=== PATIENT | female | born 1950 | race Caucasian/White ===

== ENCOUNTER → 2016-06-27 | Outpatient (CLI) | payer BC ==
[~2016-06-27] MED LIST: B-COTAB18 PO; FLAX10007 PO; HYDR25TA4 PO; MULTTAB58 PO; NAPR500T3 PO; OMEG12006 PO; OYST500T47 PO; Potassium PO; VITA400C3 PO
--- NOTE | 2016-07-01 14:28 | MAMMOGRAPHY REPORT ---
BILATERAL DIGITAL SCREENING MAMMOGRAM WITH CAD: 06/27/2016 CLINICAL HISTORY: Routine screening examination. TECHNIQUE: Bilateral CC and MLO views were obtained. Current study was also evaluated with a Comput er Aided Detection (CAD) system. COMPARISON: Comparison is made to exams dated: 06/01/2015 mammogram, 05/30/2014 mammogram, 05/27/2013 mammogram, 05/25/2012 mammogram, 05/23/2011 mammogram, and 05/11/2010 specimen - [facility]. BREAST COMPOSITION: The tissue of both breasts is almost entirely fatty. FINDINGS: There is expected architectural distortion in the 12:00 anterior right breast, at the site of prior benign surgical excisional biopsy. There is a stable intramammary lymph node in the upper outer posterior right breast. No new suspicious mass, architectural distortion or cluster of micro calcifications is seen. IMPRESSION: ACR BI-RADS CATEGORY 1: NEGATIVE There is no mammographic evidence of malignancy. A 1 year screening mammogram is recommended. The p atient will receive written notification of the results. Approximately 10% of breast cancers are not detected with mammography. A negative mammographic repor t should not delay biopsy if a clinically suggestive mass is present. Candace Smallwood M.D. ay/:07/01/2016 14:02:09 Retarder Operator: Chantelle MENDOZA)([place]), [facility] letter sent: Normal 1/2 BI-RADS Code: ACR BI-RADS Category 1: Negative
== END | disposition home or self-care (01) ==
LOC: C.MAMM 11:38
PROVIDERS: ATTEND Family Medicine
DX: Z12.31 Encounter for screening mammogram for malignant neoplasm of breast (principal)

== ENCOUNTER → 2017-08-08 | Outpatient (CLI) | payer BC ==
[~2017-08-08] MED LIST changes: +NAPR-1231 PO; -NAPR500T3 PO
--- NOTE | 2017-08-11 14:33 | MAMMOGRAPHY REPORT ---
BILATERAL DIGITAL SCREENING MAMMOGRAM TOMOSYNTHESIS WITH CAD: 08/08/2017 CLINICAL HISTORY: Routine screening. Patient has no complaints. TECHNIQUE: Breast tomosynthesis in addition to standard 2D mammography was performed. Current study was also evaluated with a Computer Aided Detection (CAD) system. COMPARISON: Comparison is made to exams dated: 06/27/2016 mammogram, 06/27/2016 mammogram, 06/01/2015 m ammogram, 05/30/2014 mammogram, 05/27/2013 mammogram, and 05/23/2011 mammogram - [facility] enter. BREAST COMPOSITION: The tissue of both breasts is almost entirely fatty. FINDINGS: No suspicious masses, calcifications, or areas of architectural distortion are noted in ei ther breast. There has been no significant interval change compared to prior exams. There is stable postsurgical architectural distortion in the right 12:00 anterior breast from prior excisional biopsy . A linear scar marker denotes a scar on the right anterior breast. IMPRESSION: ACR BI-RADS CATEGORY 2: BENIGN There is no mammographic evidence of malignancy. A 1 year screening mammogram is recommended. The pa tient will receive written notification of the results. Approximately 10% of breast cancers are not detected with mammography. A negative mammographic report should not delay biopsy if a clinically suggestive mass is present. Roselia Smith M.D. /:08/08/2017 14:46:41 Supervisor Paint: Radha [facility] letter sent: Normal 1/2 BI-RADS Code: ACR BI-RADS Category 2: Benign
== END | disposition home or self-care (01) ==
LOC: C.MAMM 12:06
PROVIDERS: ATTEND Family Medicine
DX: Z12.31 Encounter for screening mammogram for malignant neoplasm of breast (principal)

== ENCOUNTER 2025-04-02 13:49 | Inpatient (IN) ==
[2025-04-02 14:28] LABS: Hematocrit (blood only) 40.9 % (37.0-47.0); Hemoglobin 13.4 g/dL (12.0-16.0); Immature Granulocytes # (auto) 0.07 K/uL (0.01-0.20); Immature Granulocytes % (auto) 0.6 %; Mean Corpuscular Hemoglobin 30.1 pg (25.0-34.0); Mean Corpuscular Volume 91.9 fL (80.0-100.0); Platelet Count 220 K/uL (130-400); RDW Standard Deviation 47.7 fL (36.4-46.3); Red Blood Count 4.45 M/uL (4.20-5.40); White Blood Count 12.32 K/ul (4.8-10.8)
[2025-04-02 14:47] LABS: Alanine Aminotransferase 26 U/L (7-52); Albumin Globulin Ratio 1.1 (0.9-2); Albumin Level 3.9 gm/dl (3.4-5.0); Alkaline Phosphatase 55 U/L (34-104); Anion Gap 9 (3-11); Bilirubin,Total 0.6 mg/dl (0.2-1.0); Blood Urea Nitrogen 20 mg/dl (6-23); Calcium 9.6 mg/dl (8.6-10.3); Carbon Dioxide 27 mmol/L (21-32); Chloride 102 mmol/L (98-107); Globulin 3.7 gm/dl (2.5-4.0); Glucose 120 mg/dl (70-99(Fasting)); Potassium 3.7 mmol/L (3.5-5.1); Sodium 138 mmol/L (136-145); Total Protein 7.6 gm/dl (6.0-8.3)
--- NOTE | 2025-04-02 16:21 | XRay Report ---
EXAM: Radiograph of the Chest 1 View INDICATION: Cough TECHNIQUE: Frontal view of the chest. COMPARISON: No relevant prior studies available. FINDINGS: Lungs and pleural spaces: No consolidation or pulmonary edema. No pleural effusion or pneumothorax. Heart: Shape and configuration within normal limits allowing for technique. Mediastinum: Normal contour. Bones/joints: Degenerative changes noted throughout the spine. No acute osseous abnormality seen. Soft tissues: No abnormality noted. No radiopaque foreign body noted. Vasculature: Shallow inspiration with crowded vasculature. Upper abdomen: No abnormality noted. IMPRESSION: No acute cardiopulmonary disease. ACT 112: N/A Electronically signed by Phyllis Lopez 04-02-2025 4:20 PM
--- NOTE | 2025-04-02 16:40 | Emergency Department Note ---
Impression & Plan Influenza A, Upper respiratory infection, viral, Generalized weakness, Adult failure to thrive, Ambulatory dysfunction ED Provider Note NAME: KEMI LIZARRAGA AGE: 74 SEX: F : 1950 ARRIVES VIA: Walk-In INFORMANT: Patient, ED PROVIDER(S): Luís Lamb MD CHIEF COMPLAINT: Shortness of breath, cough HPI: This is a 74-year-old female presenting for shortness of breath and cough. Patient was diagnosed with the flu about 7 to 9 days ago. She has had persistent and worsening symptoms. She has had cough, difficulty talking due to this, shortness of breath. She is with her family states that she is not able to take care of herself at home and unable to do her daily activities. She reports weakness with ambulation. She reports no persistent fevers. She has been on steroids and inhaler without improvement. ROS: See above HPI for pertinent positives & negatives. A total of 10 systems reviewed and were otherwise negative. PAST MEDICAL HISTORY: See Below PAST SURGICAL HISTORY: See Below FAMILY HISTORY: See Below SOCIAL HISTORY: See Below HOME MEDICATIONS: See Below ALLERGIES: See Below VITALS: See Below PHYSICAL EXAMINATION: General: resting comfortably in no acute distress Head: Normocephalic and atraumatic Eyes: Normal inspection, extraocular muscles intact Ear, nose, throat: Normal external exam Neck: Normal range of motion Respiratory: Rhonchi diffusely Cardiovascular: Regular rate/rhythm, no murmur GI: soft, nontender, no guarding or rebound Extremities: nontender, moves all extremities Neuro: The patient awake and alert, appropriately conversive, no focal deficits, symmetric faces Skin: Warm, dry, and intact MEDICAL DECISION MAKING: This is a 74-year-old female sent for shortness of breath/cough. Patient sounds fairly junky, has borderline oxygen saturation of lower 90-91%. She is fluid positive over 1 week ago. Will do screening x-ray, blood work - Slight leukocytosis is noted, possibly from infection versus steroid use. No electrolyte abnormalities - Chest Xray independently interpreted by me showing no pneumothorax, focal opacity, or pleural effusions. - As patient is borderline hypoxic, having worsening symptoms and unable to take care of her son, admit to the hospital service at family's request. -Discussed care with Dr. Peña for admission Differential diagnosis: URI, pneumonia, failure to thrive, dehydration Independent History obtained from: Daughter, son-in-law Diagnostics interpreted by me: ECG: None Cardiac Monitoring: An order was placed for continuous cardiac monitoring. The monitor shows a rate of 68 with sinus rhythm. 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 Encounter for pre-operative examination Fatigue Encounter for vitamin deficiency screening Chronic back pain Multiple sclerosis Coronary artery disease [place] 2001, last stress test > 15 yrs ago, does not follow with cardio Hypertension Medical History Balance disorder Osteoarthritis Hx of cancer of uterus Myocardial Infarction Surgical History S/P epidural steroid injection History of esophagogastroduodenoscopy (EGD) History of colonoscopy Nausea and vomiting after administration of anesthetic agent History of bilateral tubal ligation History of tooth extraction History of hand surgery History of removal of cyst History of hysterectomy History of bladder surgery Family History Mother Allergies Hypertension Stroke Other No family history of adverse response to anesthesia No family history of bleeding disorder Denies family history of Ovarian cancer Prostate cancer Hearing loss Heart disease Myocardial infarction Breast cancer Colorectal cancer Cancer Asthma Social History Smoking Status: Never smoker Tobacco Type: Cigarettes Age Started Using Tobacco: 16; Age Quit Using Tobacco: 18; packs per day: 1; Second Hand Exposure: No; Do You Dip or Chew Tobacco: No; Hx Alcohol Use: No Hx Substance Use: No Preferred Language: Wolof Communication Ability: Effective Visual Impairment: Limited Hearing Ability: Normal Print Binding Worker Required: No Beliefs That Will Affect Care: None marital status: / Current Living Situation: Alone current occupational status: retired How many Children do You have: 2 Feels Safe at Home: Yes Childhood Exposure to Second-Hand Smoke: No Diet: regular caffeine: Yes during the past year weight has: remained stable Dental Care, Regularly: Yes Physical Activity Frequency: 3-4 Times per Week Seatbelt Use: always Sunscreen Use: No Do you think of yourself as: straight/heterosexual Sexual Activity: has been sexually active, but not for at least 12 months Gender Identity: Female Assistive Devices: Cane and Glasses Allergies Allergies Allergy/AdvReac Type Severity Reaction Status Date / Time erythromycin base Allergy Mild Rash Verified 04/02/25 17:25 Macrolide Antibiotics Allergy Mild Rash Verified 04/02/25 17:25 Penicillins Allergy Mild Rash Verified 04/02/25 17:25 Home Meds Home Medications Medication Instructions Recorded Confirmed ascorbic acid (vitamin C) 500 mg 500 mg PO QAM 02/07/21 04/02/25 tablet,extended release (Vitamin C ER) cholecalciferol (vitamin D3) 50 50 mcg PO QAM 02/07/21 04/02/25 mcg (2,000 unit) tablet (Vitamin D3) multivitamin 1 tab PO QAM 02/07/21 04/02/25 flaxseed oil 1,000 mg capsule 1,000 mg PO QPM 04/02/25 04/02/25 magnesium oxide 500 mg PO QPM 04/02/25 04/02/25 mupirocin 2 % topical ointment 1 applic topical DIRECTED 04/02/25 04/02/25 omega 3-dha 500 mg-epa 100 mg-fish 2 cap PO DAILY 04/02/25 04/02/25 oil 1,000 mg capsule Previous Rx's Medication Instructions Recorded amlodipine 5 mg tablet 5 mg PO QPM #90 tabs 01/19/25 lisinopril 20 mg tablet 20 mg PO QAM #90 tabs 01/19/25 metoprolol succinate 25 mg 25 mg PO HS #90 tabs 01/19/25 tablet,extended release 24 hr albuterol sulfate 90 mcg/actuation 2 puff inhalation QID PRN 03/30/25 aerosol inhaler shortness of breath or wheezing #6.7 grams prednisone 20 mg tablet See Rx Instructions PO .COMPLEX 03/30/25 #30 tabs benzonatate 100 mg capsule 100 mg PO TID PRN cough #30 caps 04/01/25 Results & Data (ED) Vital Signs Vital Signs - 24 hr 04/02/25 14:00 04/02/25 14:35 04/02/25 16:06 Temperature 36.9 C Temperature Source Temporal Artery Scan Pulse Rate 82 Pulse Rate [Apical] 80 68 Respiratory Rate 20 22 31 H Respiratory Effort / Characteristics Non-Labored Respiratory Depth Normal Blood Pressure 145/79 H Blood Pressure [Right Arm] 128/79 131/78 Blood Pressure Mean 101 Blood Pressure Mean [Right Arm] 95 95 Pulse Oximetry 93 93 91 Oxygen Delivery Method Room Air Room Air Room Air Sepsis Recent Fever Within 48 Hours No Sepsis New/Unexplained Change in Mental Status N/A Sepsis Action Taken by Nursing No Action Required 04/02/25 17:09 Temperature Temperature Source Pulse Rate 71 Pulse Rate [Apical] Respiratory Rate Respiratory Effort / Characteristics Respiratory Depth Blood Pressure Blood Pressure [Right Arm] Blood Pressure Mean Blood Pressure Mean [Right Arm] Pulse Oximetry Oxygen Delivery Method Sepsis Recent Fever Within 48 Hours Sepsis New/Unexplained Change in Mental Status Sepsis Action Taken by Nursing Laboratory Data 04/02/25 14:13 04/02/25 14:13 Lab Results 04/02/25 Range/Units 14:13 WBC 12.32 H (4.8-10.8) K/ul RBC 4.45 (4.20-5.40) M/uL Hgb 13.4 (12.0-16.0) g/dL Hct 40.9 (37.0-47.0) % MCV 91.9 (80.0-100.0) fL MCH 30.1 (25.0-34.0) pg MCHC 32.8 (32.0-36.0) g/dL RDW Std Deviation 47.7 H (36.4-46.3) fL RDW Coeff of Rhea 13.9 (11.5-14.5) % Plt Count 220 (130-400) K/uL MPV 9.2 L (9.4-12.4) fL Immature Gran % (Auto) 0.6 % Neut % (Auto) 68.9 % Lymph % (Auto) 24.5 % [place] % (Auto) 5.8 % Eos % (Auto) 0.0 % Baso % (Auto) 0.2 % Neut # (Auto) 8.49 H (1.40-6.50) K/uL Lymph # (Auto) 3.02 (1.20-3.40) K/uL [place] # (Auto) 0.72 H (0.11-0.59) K/uL Eos # (Auto) 0.00 (0.00-0.50) K/uL Baso # (Auto) 0.02 (0.00-0.20) K/uL Immature Gran # (Auto) 0.07 (0.01-0.20) K/uL Sodium 138 (136-145) mmol/L Potassium 3.7 (3.5-5.1) mmol/L Chloride 102 (98-107) mmol/L Carbon Dioxide 27 (21-32) mmol/L Anion Gap 9 (3-11) BUN 20 (6-23) mg/dl Creatinine 0.74 (0.6-1.2) mg/dl Est Cr Clr Drug Dosing Not Reportable eGFR 83.80 BUN/Creatinine Ratio 27.0 H (10-20) Glucose 120 H (70-99(Fasting)) mg/dl Calcium 9.6 (8.6-10.3) mg/dl Total Bilirubin 0.6 (0.2-1.0) mg/dl AST 20 (13-39) U/L ALT 26 (7-52) U/L Alkaline Phosphatase 55 (34-104) U/L Total Protein 7.6 (6.0-8.3) gm/dl Albumin 3.9 (3.4-5.0) gm/dl Globulin 3.7 (2.5-4.0) gm/dl Albumin/Globulin Ratio 1.1 (0.9-2) Administered Medications Discontinued Medications Sodium Chloride (Nss) 1,000 mls @ 999 mls/hr IV .Q1H1M ONE Stop: 04/02/25 16:56 Last Admin: 04/02/25 16:55 Dose: 999 mls/hr Documented By: SUDHA Imaging Data Radiologist's Impression: Chest X-Ray 04/02/25 14:05 EXAM: Radiograph of the Chest 1 View INDICATION: Cough TECHNIQUE: Frontal view of the chest. COMPARISON: No relevant prior studies available. FINDINGS: Lungs and pleural spaces: No consolidation or pulmonary edema. No pleural effusion or pneumothorax. Heart: Shape and configuration within normal limits allowing for technique. Mediastinum: Normal contour. Bones/joints: Degenerative changes noted throughout the spine. No acute osseous abnormality seen. Soft tissues: No abnormality noted. No radiopaque foreign body noted. Vasculature: Shallow inspiration with crowded vasculature. Upper abdomen: No abnormality noted. IMPRESSION: No acute cardiopulmonary disease. ACT 112: N/A Electronically signed by Phyllis Lopez 04-02-2025 4:20 PM Discharge Plan Visit Data Chief Complaint: Flu Like Symptoms Stated Complaint: +FLU, CONSTANT COUGH, DEBILITATION ED Provider: Luís Lamb Discharge Problem: Influenza A, Upper respiratory infection, viral, Generalized weakness, Adult failure to thrive, Ambulatory dysfunction Patient Disposition: Admitted As Inpatient Condition: Fair Forms Stand Alone Forms: My [facility] Prescriptions Prescriptions: No Action amlodipine 5 mg tablet 5 mg PO QPM Qty: 90 3RF lisinopril 20 mg tablet 20 mg PO QAM Qty: 90 3RF metoprolol succinate 25 mg tablet extended release 24 hr 25 mg PO HS Qty: 90 3RF benzonatate 100 mg capsule 100 mg PO TID PRN (Reason: cough) Qty: 30 0RF prednisone 20 mg tablet See Rx Instructions PO .COMPLEX Qty: 30 0RF Rx Instructions: STARTED 03/30/24 FOR 15 DAYS.....3 tabs PO daily X 5 days, then 2 tabs PO daily X 5 days, then 1 tab PO daily X 5 days, then stop. albuterol sulfate 90 mcg/actuation HFA aerosol inhaler 2 puff inhalation QID PRN (Reason: shortness of breath or wheezing) Qty: 6.7 0RF multivitamin Tablet 1 tab PO QAM ascorbic acid (vitamin C) [Vitamin C] 500 mg Tablet Extended Release 500 mg PO QAM cholecalciferol (vitamin D3) [Vitamin D3] 50 mcg (2,000 unit) Tablet 50 mcg PO QAM flaxseed oil 1,000 mg Capsule 1,000 mg PO QPM Rx Instructions: administer with a meal magnesium oxide 500 mg magnesium Tablet 500 mg PO QPM omega 0-ftm-tij-fish oil 500-100-1,000 mg Capsule 2 cap PO DAILY mupirocin 2 % ointment 1 applic topical DIRECTED Rx Instructions: APPLY TO AFFECTED NOSTRIL every few days Referrals Referrals: Brie Rivera CRNP [Primary Care Provider] -
[2025-04-02] MEDS: SODIUM CHLORIDE 0.9% 1,000 ML IV ONE (16:55)
--- NOTE | 2025-04-02 17:30 | History & Physical Report ---
Date of Service April 02, 2025 Assessment & Plan (1) Ambulatory dysfunction: (2) Influenza A: (3) Acute bronchitis: (4) Hypertension: Plan 74-year-old female with a past medical history of hypertension, history of multiple sclerosisnot on any treatment presents to the hospital with recent diagnosis of influenza, worsening cough, and dyspnea and generalized malaise: #Influenza #Left lower lobe pneumonia -Admit to [facility] -Patient underwent CT imaging, final report pendingpossible left lower lobe infiltrate -Due to leukocytosis, worsening symptoms will treat for bacterial pneumonia with IV antibiotics in the form of ceftriaxone and doxycycline. -based on current status not with evidence of sepsis - patient would not be a candidate for treatment of her influenza as it has been more than 5 days since she was diagnosed with this. -Continue prednisone, DuoNeb as needed -Encourage I-S -Antitussives as needed, Mucinex twice daily #Hypertension -Continue home medications including Norvasc, lisinopril and metoprolol #Debility -PT, OT eval History of Present Illness Chief Complaint: Cough Primary Care Provider: EDEN Grace 74-year-old female with a past medical history as mentioned below presents to the hospital from home. She was recently diagnosed with influenza, outpatient and has had increased cough along with some mild dyspnea and inability to talk for lengthy periods of time. She mentions her cough is minimally productive. She also complains of significant muscle aches, debility and generalized malaise. She had a fever earlier in her illness but has not had a fever for the past few days. She reached out to her primary care physician and they prescribed her prednisone along with inhalers, no improvement since starting these medications. She also was prescribed Tessalon Perles but has not been taking them in the you have the side effects. She mentions due to her signific ant cough she has not been able to sleep well. She denies having any chest discomfort. She has a mild sore throat and a change in her voice. She normally does not use any assist devices and has been feeling more unsteady than usual. Allergies Allergy/AdvReac Type Severity Reaction Status Date / Time erythromycin base Allergy Mild Rash Verified 04/02/25 17:25 Macrolide Antibiotics Allergy Mild Rash Verified 04/02/25 17:25 Penicillins Allergy Mild Rash Verified 04/02/25 17:25 Home Medications Medication Instructions Recorded Confirmed Type ascorbic acid (vitamin C) 500 mg 500 mg PO QAM 02/07/21 04/02/25 History tablet,extended release (Vitamin C ER) cholecalciferol (vitamin D3) 50 50 mcg PO QAM 02/07/21 04/02/25 History mcg (2,000 unit) tablet (Vitamin D3) multivitamin 1 tab PO QAM 02/07/21 04/02/25 History amlodipine 5 mg tablet 5 mg PO QPM #90 tabs 01/19/25 04/02/25 Rx lisinopril 20 mg tablet 20 mg PO QAM #90 tabs 01/19/25 04/02/25 Rx metoprolol succinate 25 mg 25 mg PO HS #90 tabs 01/19/25 04/02/25 Rx tablet,extended release 24 hr albuterol sulfate 90 mcg/actuation 2 puff inhalation QID PRN 03/30/25 04/02/25 Rx aerosol inhaler shortness of breath or wheezing #6.7 grams prednisone 20 mg tablet See Rx Instructions PO .COMPLEX 03/30/25 04/02/25 Rx #30 tabs benzonatate 100 mg capsule 100 mg PO TID PRN cough #30 caps 04/01/25 04/02/25 Rx flaxseed oil 1,000 mg capsule 1,000 mg PO QPM 04/02/25 04/02/25 History magnesium oxide 500 mg PO QPM 04/02/25 04/02/25 History mupirocin 2 % topical ointment 1 applic topical DIRECTED 04/02/25 04/02/25 History omega 3-dha 500 mg-epa 100 mg-fish 2 cap PO DAILY 04/02/25 04/02/25 History oil 1,000 mg capsule 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 Encounter for pre-operative examination Fatigue Encounter for vitamin deficiency screening Chronic back pain Multiple sclerosis Coronary artery disease [place] 2001, last stress test > 15 yrs ago, does not follow with cardio Hypertension Medical History Balance disorder Osteoarthritis Hx of cancer of uterus Myocardial Infarction Surgical History S/P epidural steroid injection History of esophagogastroduodenoscopy (EGD) History of colonoscopy Nausea and vomiting after administration of anesthetic agent History of bilateral tubal ligation History of tooth extraction History of hand surgery History of removal of cyst History of hysterectomy History of bladder surgery Family History Mother Allergies Hypertension Stroke Other No family history of adverse response to anesthesia No family history of bleeding disorder Denies family history of Ovarian cancer Prostate cancer Hearing loss Heart disease Myocardial infarction Breast cancer Colorectal cancer Cancer Asthma Social History Smoking Status: Never smoker Tobacco Type: Cigarettes Age Started Using Tobacco: 16; Age Quit Using Tobacco: 18; packs per day: 1; Second Hand Exposure: No; Do You Dip or Chew Tobacco: No; Hx Alcohol Use: No Hx Substance Use: No Preferred Language: Maori Communication Ability: Effective Visual Impairment: Limited Hearing Ability: Normal Security Support Analyst Required: No Beliefs That Will Affect Care: None marital status: / Current Living Situation: Alone current occupational status: retired How many Children do You have: 2 Feels Safe at Home: Yes Childhood Exposure to Second-Hand Smoke: No Diet: regular caffeine: Yes during the past year weight has: remained stable Dental Care, Regularly: Yes Physical Activity Frequency: 3-4 Times per Week Seatbelt Use: always Sunscreen Use: No Do you think of yourself as: straight/heterosexual Sexual Activity: has been sexually active, but not for at least 12 months Gender Identity: Female Assistive Devices: Cane and Glasses Physical Exam Physical Exam: Gen-pt in NAD, awake and alert CVS-+s1,s2, RRR, no murmurs Lungs- Diminished breath sounds at the bases. GI-+ bs, normoactive, NT, ND Ext-no edema, no cyanosis Neuro-grossly intact Results & Data Results & Data Vital Signs (Past 12 Hours) Vital Signs Temp Pulse Pulse Resp BP BP Pulse Ox 04/02/25 17:09 71 04/02/25 16:06 68 31 H 131/78 91 04/02/25 14:35 80 22 128/79 93 04/02/25 14:00 36.9 C 82 20 145/79 H 93 O2 Del Method 04/02/25 17:09 04/02/25 16:06 Room Air 04/02/25 14:35 Room Air 04/02/25 14:00 Room Air Laboratory Results 04/02/25 14:13 WBC 12.32 H RBC 4.45 Hgb 13.4 Hct 40.9 MCV 91.9 MCH 30.1 MCHC 32.8 RDW Std Deviation 47.7 H RDW Coeff of Rhea 13.9 Plt Count 220 MPV 9.2 L Immature Gran % (Auto) 0.6 Neut % (Auto) 68.9 Lymph % (Auto) 24.5 [place] % (Auto) 5.8 Eos % (Auto) 0.0 Baso % (Auto) 0.2 Neut # (Auto) 8.49 H Lymph # (Auto) 3.02 [place] # (Auto) 0.72 H Eos # (Auto) 0.00 Baso # (Auto) 0.02 Immature Gran # (Auto) 0.07 Sodium 138 Potassium 3.7 Chloride 102 Carbon Dioxide 27 Anion Gap 9 BUN 20 Creatinine 0.74 Est Cr Clr Drug Dosing Not Reportable eGFR 83.80 BUN/Creatinine Ratio 27.0 H Glucose 120 H Calcium 9.6 Total Bilirubin 0.6 AST 20 ALT 26 Alkaline Phosphatase 55 Total Protein 7.6 Albumin 3.9 Globulin 3.7 Albumin/Globulin Ratio 1.1 Diagnostic Findings Chest X-Ray 04/02/25 14:05 EXAM: Radiograph of the Chest 1 View INDICATION: Cough TECHNIQUE: Frontal view of the chest. COMPARISON: No relevant prior studies available. FINDINGS: Lungs and pleural spaces: No consolidation or pulmonary edema. No pleural effusion or pneumothorax. Heart: Shape and configuration within normal limits allowing for technique. Mediastinum: Normal contour. Bones/joints: Degenerative changes noted throughout the spine. No acute osseous abnormality seen. Soft tissues: No abnormality noted. No radiopaque foreign body noted. Vasculature: Shallow inspiration with crowded vasculature. Upper abdomen: No abnormality noted. IMPRESSION: No acute cardiopulmonary disease. ACT 112: N/A Electronically signed by Phyllis Lopez 04-02-2025 4:20 PM Code Status & VTE Plan VTE Prophylaxis Plan VTE Prophylaxis will be ordered: Yes PG Care Time/CCT Total # of Minutes Spent Total Time Spent with Patient: Total time spent is greater than 50% in coordination of care (as documented) at patient's floor/unit and/or counseling patient: Coding Level of Care Code 14240 INT INP/OBS CARE 3/75MIN Diagnoses Ambulatory dysfunction R26.2 Influenza A J10.1 Acute bronchitis, unspecified organism J20.9 Bronchitis organism: unspecified organism Primary hypertension I10 Hypertension type: primary hypertension (3) Acute bronchitis Bronchitis organism: unspecified organism Qualified Code(s): J20.9 - Acute bronchitis, unspecified (4) Hypertension Hypertension type: primary hypertension Qualified Code(s): I10 - Essential (primary) hypertension
--- NOTE | 2025-04-02 18:26 | CT Scan Report ---
CT chest without contrast Technique: Noncontrast axial images of chest. Coronal and sagittal reformatted images made available for review No comparison Findings: Left lower lobe infiltrate likely infectious or inflammatory etiology. Cardiomegaly. Vertebral calcifications. Trace pericardial effusion. No effusions. Right lung is clear. Pression Left lower lobe pneumonia Electronically signed by Ata Wallace 04-02-2025 6:26 PM
[2025-04-02] MEDS ORDERED: ONDANSETRON INJ 2 MG/ML 2 ML VIAL IV PRN (18:48)
[2025-04-02] MEDS ORDERED: ALBUT/IPRATROP 3MG/0.5MG NEB 3 ML VIAL NEB PRN (18:48)
[2025-04-02] MEDS ORDERED: MAGNESIUM HYDROXIDE SUSP 30 ML UDC PO PRN (18:48)
[2025-04-02] MEDS ORDERED: POLYETHYLENE (MIRALAX) 17 GM PACK PO PRN (18:48)
[2025-04-02] MEDS ORDERED: MELATONIN 3 MG TAB PO PRN (18:48)
[2025-04-02] MEDS ORDERED: ALUMINUM/MAGNESIUM SUSP 30 ML UDC PO PRN (18:48)
[2025-04-02] MEDS ORDERED: FLUTICASONE PROPIONATE NA SPR 16 GM BTL PRN (18:48)
[2025-04-02] MEDS ORDERED: ALBUTEROL HFA 8 GM INHALER INH PRN (18:48)
[2025-04-02] MEDS: cefTRIAXone SODIUM 2,000 MG/50 ML BAG IV SCH (20:09)
[2025-04-02] MEDS: guaiFENesin 600 MG TABCR PO SCH (20:13)
[2025-04-02] MEDS: ENOXAPARIN INJ 40 MG/0.4 ML SYR SQ SCH (20:20)
[2025-04-02] MEDS: predniSONE 20 MG TAB PO SCH (20:20)
[2025-04-02] MEDS: METOPROLOL SUCC 25MG EXT REL TAB PO SCH (20:20)
[2025-04-02] MEDS: ACETAMINOPHEN 325 MG TAB PO PRN (22:19)
[2025-04-03 06:06] LABS: Hematocrit (blood only) 38.9 % (37.0-47.0); Hemoglobin 12.7 g/dL (12.0-16.0); Immature Granulocytes # (auto) 0.07 K/uL (0.01-0.20); Immature Granulocytes % (auto) 0.8 %; Mean Corpuscular Hemoglobin 30.1 pg (25.0-34.0); Mean Corpuscular Volume 92.2 fL (80.0-100.0); Platelet Count 222 K/uL (130-400); RDW Standard Deviation 47.2 fL (36.4-46.3); Red Blood Count 4.22 M/uL (4.20-5.40); White Blood Count 9.32 K/ul (4.8-10.8)
[2025-04-03 06:22] LABS: Alanine Aminotransferase 20.0 U/L (7-52); Albumin Globulin Ratio 1.0 (0.9-2); Albumin Level 3.5 gm/dl (3.4-5.0); Alkaline Phosphatase 52.0 U/L (34-104); Anion Gap 6.0 (3-11); Bilirubin,Total 0.5 mg/dl (0.2-1.0); Blood Urea Nitrogen 19.0 mg/dl (6-23); Calcium 8.9 mg/dl (8.6-10.3); Carbon Dioxide 25.0 mmol/L (21-32); Chloride 106.0 mmol/L (98-107); Creatinine Clr Calc Pharmacy 80.9 ml/min; Globulin 3.5 gm/dl (2.5-4.0); Glucose 153.0 mg/dl (70-99(Fasting)); Magnesium 2.2 mg/dl (1.7-2.4); Potassium 4.4 mmol/L (3.5-5.1); Sodium 137.0 mmol/L (136-145); Total Protein 7.0 gm/dl (6.0-8.3)
[2025-04-03] MEDS: CHOLECALCIFEROL 25 MCG (1000 UNITS) TAB PO SCH (08:42)
[2025-04-03] MEDS: MULTIVITAMIN TAB PO SCH (08:42)
[2025-04-03] MEDS: ASCORBIC ACID 500 MG TAB PO SCH (08:42)
--- NOTE | 2025-04-03 14:15 | Hospitalist Progress Note ---
Date of Service April 03, 2025 Assessment & Plan (1) Ambulatory dysfunction: (2) Influenza A: (3) Acute bronchitis: (4) Hypertension: Plan 74-year-old female with a past medical history of hypertension, history of multiple sclerosisnot on any treatment presents to the hospital with recent diagnosis of influenza, worsening cough, and dyspnea and generalized malaise: #Influenza #Left lower lobe pneumonia -Patient underwent CT imaging, Which showed a left lower lobe pneumonia - continue IV ceftriaxone and doxycycline. -based on current status not with evidence of sepsis - patient would not be a candidate for treatment of her influenza as it has been more than 5 days since she was diagnosed with this. -Continue prednisone, DuoNeb as needed -Encourage I-S -Antitussives as needed, Mucinex twice daily #Hypertension -Continue home medications including Norvasc, lisinopril and metoprolol #Debility -PT, OT eval Admission and Anticipated Discharge Date Admission Date: April 03, 2025 Subjective Patient seen and examined. She mentions her cough is mildly better. She denies having any chest pain at this time. She mention she was able to sleep last night, her cough is somewhat more productive today. No nausea or vomiting noted. No fevers or chills noted. Physical Exam Physical Exam: Gen-pt in NAD, awake and alert CVS-+s1,s2, RRR, no murmurs Lungs- Diminished breath sounds at the bases. GI-+ bs, normoactive, NT, ND Ext-no edema, no cyanosis Neuro-grossly intact Results & Data Results & Data Vital Signs (Past 12 Hours) Vital Signs Temp Pulse Resp BP Pulse Ox O2 Del Method O2 Flow Rate 04/03/25 09:20 36.4 C L 73 18 115/73 94 Nasal Cannula 4 04/03/25 09:00 Nasal Cannula 4 Laboratory Results 04/03/25 04/02/25 05:34 14:13 WBC 9.32 12.32 H RBC 4.22 4.45 Hgb 12.7 13.4 Hct 38.9 40.9 MCV 92.2 91.9 MCH 30.1 30.1 MCHC 32.6 32.8 RDW Std Deviation 47.2 H 47.7 H RDW Coeff of Rhea 13.9 13.9 Plt Count 222 220 MPV 9.3 L 9.2 L Immature Gran % (Auto) 0.8 0.6 Neut % (Auto) 80.8 68.9 Lymph % (Auto) 16.3 24.5 [place] % (Auto) 2.0 5.8 Eos % (Auto) 0.0 0.0 Baso % (Auto) 0.1 0.2 Neut # (Auto) 7.53 H 8.49 H Lymph # (Auto) 1.52 3.02 [place] # (Auto) 0.19 0.72 H Eos # (Auto) 0.00 0.00 Baso # (Auto) 0.01 0.02 Immature Gran # (Auto) 0.07 0.07 Sodium 137 138 Potassium 4.4 3.7 Chloride 106 102 Carbon Dioxide 25 27 Anion Gap 6 9 BUN 19 20 Creatinine 0.64 0.74 Est Cr Clr Drug Dosing 80.9 Not Reportable eGFR 91.53 83.80 BUN/Creatinine Ratio 29.7 H 27.0 H Glucose 153 H 120 H Calcium 8.9 9.6 Magnesium 2.2 Total Bilirubin 0.5 0.6 AST 15 20 ALT 20 26 Alkaline Phosphatase 52 55 Total Protein 7.0 7.6 Albumin 3.5 3.9 Globulin 3.5 3.7 Albumin/Globulin Ratio 1.0 1.1 Procalcitonin < 0.02 Diagnostic Findings Chest X-Ray 04/02/25 14:05 EXAM: Radiograph of the Chest 1 View INDICATION: Cough TECHNIQUE: Frontal view of the chest. COMPARISON: No relevant prior studies available. FINDINGS: Lungs and pleural spaces: No consolidation or pulmonary edema. No pleural effusion or pneumothorax. Heart: Shape and configuration within normal limits allowing for technique. Mediastinum: Normal contour. Bones/joints: Degenerative changes noted throughout the spine. No acute osseous abnormality seen. Soft tissues: No abnormality noted. No radiopaque foreign body noted. Vasculature: Shallow inspiration with crowded vasculature. Upper abdomen: No abnormality noted. IMPRESSION: No acute cardiopulmonary disease. ACT 112: N/A Electronically signed by Phyllis Lopez 04-02-2025 4:[address] 04/02/25 15:59 CT chest without contrast Technique: Noncontrast axial images of chest. Coronal and sagittal reformatted images made available for review No comparison Findings: Left lower lobe infiltrate likely infectious or inflammatory etiology. Cardiomegaly. Vertebral calcifications. Trace pericardial effusion. No effusions. Right lung is clear. Pression Left lower lobe pneumonia Electronically signed by Ata Wallace 04-02-2025 6:26 PM PG Care Time/CCT Total # of Minutes Spent Total Time Spent with Patient: Total time spent is greater than 50% in coordination of care (as documented) at patient's floor/unit and/or counseling patient: Coding Level of Care Code 03882 SUB INP/OBS CARE 3/50MIN Diagnoses Ambulatory dysfunction R26.2 Influenza A J10.1 Acute bronchitis, unspecified organism J20.9 Bronchitis organism: unspecified organism Primary hypertension I10 Hypertension type: primary hypertension (3) Acute bronchitis Bronchitis organism: unspecified organism Qualified Code(s): J20.9 - Acute bronchitis, unspecified (4) Hypertension Hypertension type: primary hypertension Qualified Code(s): I10 - Essential (primary) hypertension
[2025-04-04 06:48] LABS: Hematocrit (blood only) 38.1 % (37.0-47.0); Hemoglobin 12.3 g/dL (12.0-16.0); Immature Granulocytes # (auto) 0.08 K/uL (0.01-0.20); Immature Granulocytes % (auto) 0.8 %; Mean Corpuscular Hemoglobin 29.6 pg (25.0-34.0); Mean Corpuscular Volume 91.8 fL (80.0-100.0); Platelet Count 262 K/uL (130-400); RDW Standard Deviation 46.4 fL (36.4-46.3); Red Blood Count 4.15 M/uL (4.20-5.40); White Blood Count 9.86 K/ul (4.8-10.8)
[2025-04-04 07:10] LABS: Alanine Aminotransferase 19.0 U/L (7-52); Albumin Globulin Ratio 1.1 (0.9-2); Albumin Level 3.6 gm/dl (3.4-5.0); Alkaline Phosphatase 45.0 U/L (34-104); Anion Gap 6.0 (3-11); Bilirubin,Total 0.4 mg/dl (0.2-1.0); Blood Urea Nitrogen 21.0 mg/dl (6-23); Calcium 9.0 mg/dl (8.6-10.3); Carbon Dioxide 28.0 mmol/L (21-32); Chloride 106.0 mmol/L (98-107); Creatinine Clr Calc Pharmacy 76.1 ml/min; Globulin 3.2 gm/dl (2.5-4.0); Glucose 100.0 mg/dl (70-99(Fasting)); Magnesium 2.2 mg/dl (1.7-2.4); Potassium 3.6 mmol/L (3.5-5.1); Sodium 140.0 mmol/L (136-145); Total Protein 6.8 gm/dl (6.0-8.3)
--- NOTE | 2025-04-04 10:35 | Electrocardiogram Report ---
Test Reason : Blood Pressure : */* mmHG Vent. Rate : 80 BPM Atrial Rate : 80 BPM P-R Int : 128 ms QRS Dur : 126 ms QT Int : 408 ms P-R-T Axes : 44 93 22 degrees QTcB Int : 470 ms Normal sinus rhythm Right bundle branch block Right axis deviation Abnormal ECG When compared with ECG of 25-Mar-2022 13:41, No significant change was found Confirmed by Suha Waters ([facility]) on 04/04/2025 10:35:12 AM Referred By: REFERRED SELF Confirmed By: Suha Waters
--- NOTE | 2025-04-04 15:20 | Hospitalist Progress Note ---
Date of Service April 04, 2025 Assessment & Plan (1) Ambulatory dysfunction: (2) Influenza A: (3) Acute bronchitis: (4) Hypertension: Plan 74-year-old female with a past medical history of hypertension, history of multiple sclerosisnot on any treatment presents to the hospital with recent diagnosis of influenza, worsening cough, and dyspnea and generalized malaise: #Influenza #Left lower lobe pneumonia #Acute hypoxic respiratory failure -Patient underwent CT imaging, Which showed a left lower lobe pneumonia - continue IV ceftriaxone and doxycycline. -based on current status not with evidence of sepsis - patient would not be a candidate for treatment of her influenza as it has been more than 5 days since she was diagnosed with this. -Continue prednisone-likely short course, DuoNeb as needed -Encourage I-S, Chest PT -Antitussives as needed, Mucinex twice daily - patient remains on 2 L of oxygen likely due to acute bacterial pneumonia, continue to wean oxygen as tolerated #Hypertension -Continue home medications including Norvasc, lisinopril and metoprolol #Debility -PT, OT eval Admission and Anticipated Discharge Date Admission Date: April 03, 2025 Subjective Patient seen and examined. She mentions she has an ongoing cough that is intermittent, minimally productive. She has had no chest pain at this time. She feels like her breathing is getting better. She was able to sleep well last night. She has had no nausea or vomiting, appetite is slightly improved as well. Physical Exam Physical Exam: Gen-pt in NAD, awake and alert CVS-+s1,s2, RRR, no murmurs Lungs- Diminished breath sounds at the bases. GI-+ bs, normoactive, NT, ND Ext-no edema, no cyanosis Neuro-grossly intact Results & Data Results & Data Vital Signs (Past 12 Hours) Vital Signs Temp Pulse Resp BP Pulse Ox Pulse Ox Pulse Ox 04/04/25 14:49 36.7 C 71 16 126/75 94 04/04/25 12:08 94 97 04/04/25 10:20 04/04/25 08:00 36.7 C 74 16 120/80 94 O2 Del Method O2 Flow Rate O2 Flow Rate O2 Flow Rate 04/04/25 14:49 Nasal Cannula 3 04/04/25 12:08 4 4 04/04/25 10:20 Nasal Cannula 4 04/04/25 08:00 Room Air Laboratory Results 04/04/25 06:23 WBC 9.86 RBC 4.15 L Hgb 12.3 Hct 38.1 MCV 91.8 MCH 29.6 MCHC 32.3 RDW Std Deviation 46.4 H RDW Coeff of Rhea 13.7 Plt Count 262 MPV 9.0 L Immature Gran % (Auto) 0.8 Neut % (Auto) 58.6 Lymph % (Auto) 33.0 [place] % (Auto) 7.4 Eos % (Auto) 0.1 Baso % (Auto) 0.1 Neut # (Auto) 5.78 Lymph # (Auto) 3.25 [place] # (Auto) 0.73 H Eos # (Auto) 0.01 Baso # (Auto) 0.01 Immature Gran # (Auto) 0.08 Sodium 140 Potassium 3.6 Chloride 106 Carbon Dioxide 28 Anion Gap 6 BUN 21 Creatinine 0.68 Est Cr Clr Drug Dosing 76.1 eGFR 90.20 BUN/Creatinine Ratio 30.9 H Glucose 100 H Calcium 9.0 Magnesium 2.2 Total Bilirubin 0.4 AST 14 ALT 19 Alkaline Phosphatase 45 Total Protein 6.8 Albumin 3.6 Globulin 3.2 Albumin/Globulin Ratio 1.1 PG Care Time/CCT Total # of Minutes Spent Total Time Spent with Patient: Total time spent is greater than 50% in coordination of care (as documented) at patient's floor/unit and/or counseling patient: Coding Level of Care Code 23881 SUB INP/OBS CARE 3/50MIN Diagnoses Ambulatory dysfunction R26.2 Influenza A J10.1 Acute bronchitis, unspecified organism J20.9 Bronchitis organism: unspecified organism Primary hypertension I10 Hypertension type: primary hypertension (3) Acute bronchitis Bronchitis organism: unspecified organism Qualified Code(s): J20.9 - Acute bronchitis, unspecified (4) Hypertension Hypertension type: primary hypertension Qualified Code(s): I10 - Essential (primary) hypertension
[2025-04-04] MEDS: DOXYCYCLINE HYCLATE 100 MG CAP PO SCH (20:14)
[2025-04-05 06:51] LABS: Hematocrit (blood only) 38.2 % (37.0-47.0); Hemoglobin 12.6 g/dL (12.0-16.0); Immature Granulocytes % (auto) 1.2 %; Mean Corpuscular Hemoglobin 29.9 pg (25.0-34.0); Mean Corpuscular Volume 90.5 fL (80.0-100.0); Platelet Count 296 K/uL (130-400); RDW Standard Deviation 45.1 fL (36.4-46.3); Red Blood Count 4.22 M/uL (4.20-5.40); White Blood Count 9.38 K/ul (4.8-10.8)
[2025-04-05 06:52] LABS: Immature Granulocytes # (auto) 0.11 K/uL (0.01-0.20)
[2025-04-05 07:11] LABS: Alanine Aminotransferase 20.0 U/L (7-52); Albumin Globulin Ratio 1.1 (0.9-2); Albumin Level 3.6 gm/dl (3.4-5.0); Alkaline Phosphatase 43.0 U/L (34-104); Anion Gap 8.0 (3-11); Bilirubin,Total 0.4 mg/dl (0.2-1.0); Blood Urea Nitrogen 23.0 mg/dl (6-23); Calcium 9.0 mg/dl (8.6-10.3); Carbon Dioxide 25.0 mmol/L (21-32); Chloride 107.0 mmol/L (98-107); Creatinine Clr Calc Pharmacy 90.8 ml/min; Globulin 3.2 gm/dl (2.5-4.0); Glucose 101.0 mg/dl (70-99(Fasting)); Magnesium 2.3 mg/dl (1.7-2.4); Potassium 3.8 mmol/L (3.5-5.1); Sodium 140.0 mmol/L (136-145); Total Protein 6.8 gm/dl (6.0-8.3)
[2025-04-05 08:47] VITALS: O2SAT 91
--- NOTE | 2025-04-05 11:23 | Discharge Summary ---
Discharge Summary Date of Service April 05, 2025 Principal Dx & Hospital Course #1 = Principal Diagnosis (1) Ambulatory dysfunction: (2) Influenza A: (3) Acute bronchitis: (4) Hypertension: Plan 74-year-old female with a past medical history of hypertension, history of multiple sclerosisnot on any treatment presents to the hospital with recent diagnosis of influenza, worsening cough, and dyspnea and generalized malaise: #Influenza #Left lower lobe pneumonia #Acute hypoxic respiratory failure -Patient underwent CT imaging, Which showed a left lower lobe pneumonia - continue IV ceftriaxone and doxycycline, Transitioned to oral antibiotics on discharge. - underwent home oxygen evaluation, no home oxygen needs at this time. -based on current status not with evidence of sepsis - patient would not be a candidate for treatment of her influenza as it has been more than 5 days since she was diagnosed with this. -Continue prednisone-likely short course, DuoNeb as needed -Encourage I-S, Chest PT -Antitussives as needed, Mucinex twice daily #Hypertension -Continue home medications including Norvasc, lisinopril and metoprolol #Debility -PT, OT eval appreciated, will need outpt home therapy/vna Admission HPI Per Admitting Provider 74-year-old female with a past medical history as mentioned below presents to the hospital from home. She was recently diagnosed with influenza, outpatient and has had increased cough along with some mild dyspnea and inability to talk for lengthy periods of time. She mentions her cough is minimally productive. She also complains of significant muscle aches, debility and generalized malaise. She had a fever earlier in her illness but has not had a fever for the past few days. She reached out to her primary care physician and they prescribed her prednisone along with inhalers, no improvement since starting these medications. She also was prescribed Tessalon Perles but has not been taking them in the you have the side effects. She mentions due to her significant cough she has not been able to sleep well. She denies having any chest discomfort. She has a mild sore throat and a change in her voice. She normally does not use any assist devices and has been feeling more unsteady than usual. Discharge Plan Discharge Items Patient Disposition: Home - Home Health Services Reason For Visit: POST VIRAL BRONCHITIS Discharge Diagnosis: Pneumonia Debility Condition on Discharge: Fair Activity: Per Instructions section Lifting: Gradually increase as tolerated Bathing: No limitations Exercise/Sports: Gradually increase as tolerated Weightbearing: Full weightbearing Non-emergency contact: Primary Care Provider Call non-emergency contact if: you have any medication questions, your symptoms worsen, your pain is not controlled, your pain is worsening and you have a fever Follow-up/Referrals: Brie Rivera CRNP [Primary Care Provider] - Diet: Heart Healthy Addtl Attending Provider Instructions: You came to the hospital for a cough and were found to have a pneumonia. You will be continued on antibiotics after leaving the hospital, and please return if you have any further symptoms or have trouble breathing. Pending Studies at Discharge: No Stand-Alone Forms: My [facility] [employer], Smoking Cessation Medications and DC Order Prescriptions: New guaifenesin [Mucinex] 600 mg Tablet Extended Release 12hr 600 mg PO Q12 7 Days Qty: 14 0RF codeine-guaifenesin [Guaifenesin AC] 10-100 mg/5 mL Liquid 10 ml PO Q6H PRN (Reason: cough) Qty: 118 0RF doxycycline hyclate 100 mg Capsule 100 mg PO BID 4 Days Qty: 8 0RF cefpodoxime 200 mg tablet 200 mg PO BID 5 Days Qty: 10 0RF Rx Instructions: must administer with a meal/food Continued amlodipine 5 mg tablet 5 mg PO QPM Qty: 90 3RF lisinopril 20 mg tablet 20 mg PO QAM Qty: 90 3RF metoprolol succinate 25 mg tablet extended release 24 hr 25 mg PO HS Qty: 90 3RF benzonatate 100 mg capsule 100 mg PO TID PRN (Reason: cough) Qty: 30 0RF albuterol sulfate 90 mcg/actuation HFA aerosol inhaler 2 puff inhalation QID PRN (Reason: shortness of breath or wheezing) Qty: 6.7 0RF multivitamin Tablet 1 tab PO QAM ascorbic acid (vitamin C) [Vitamin C] 500 mg Tablet Extended Release 500 mg PO QAM cholecalciferol (vitamin D3) [Vitamin D3] 50 mcg (2,000 unit) Tablet 50 mcg PO QAM flaxseed oil 1,000 mg Capsule 1,000 mg PO QPM Rx Instructions: administer with a meal magnesium oxide 500 mg magnesium Tablet 500 mg PO QPM omega 6-bfk-lkb-fish oil 500-100-1,000 mg Capsule 2 cap PO DAILY mupirocin 2 % ointment 1 applic topical DIRECTED Rx Instructions: APPLY TO AFFECTED NOSTRIL every few days Discontinued prednisone 20 mg tablet See Rx Instructions PO .COMPLEX Qty: 30 0RF Rx Instructions: STARTED 03/30/24 FOR 15 DAYS.....3 tabs PO daily X 5 days, then 2 tabs PO daily X 5 days, then 1 tab PO daily X 5 days, then stop. Discharge Orders: Discharge Order (Routine); Ordered 04/05/25 Ordered By: Carlos Holloway/Other Patient Handouts: Pneumonia Community Acquired, Vaccine Pneumococcal, Influenza Vaccine Admission Data Admit Date/Time: 04/03/25 14:11 Attending Provider: Carlos Peña Admit Provider: Carlos Peña Primary Care Provider: Brie Rivera Other Providers: Carlos Peña Hospital Stay Data Consultations 04/02/25 16:39 ED Decision to Admit Stat Diagnostic Imagining Performed Chest X-Ray 04/02/25 14:05 EXAM: Radiograph of the Chest 1 View INDICATION: Cough TECHNIQUE: Frontal view of the chest. COMPARISON: No relevant prior studies available. FINDINGS: Lungs and pleural spaces: No consolidation or pulmonary edema. No pleural effusion or pneumothorax. Heart: Shape and configuration within normal limits allowing for technique. Mediastinum: Normal contour. Bones/joints: Degenerative changes noted throughout the spine. No acute osseous abnormality seen. Soft tissues: No abnormality noted. No radiopaque foreign body noted. Vasculature: Shallow inspiration with crowded vasculature. Upper abdomen: No abnormality noted. IMPRESSION: No acute cardiopulmonary disease. ACT 112: N/A Electronically signed by Phyllis Lopez 04-02-2025 4:[address] 04/02/25 15:59 CT chest without contrast Technique: Noncontrast axial images of chest. Coronal and sagittal reformatted images made available for review No comparison Findings: Left lower lobe infiltrate likely infectious or inflammatory etiology. Cardiomegaly. Vertebral calcifications. Trace pericardial effusion. No effusions. Right lung is clear. Pression Left lower lobe pneumonia Electronically signed by Ata Wallace 04-02-2025 6:26 PM 04/02/25 15:59 CT chest diagnostic wo con Stat Pending Results Patient Have Any Pending Studies at Discharge: No Discharge Instructions Given to Patient (Per Discharging Provider) You came to the hospital for a cough and were found to have a pneumonia. You will be continued on antibiotics after leaving the hospital, and please return if you have any further symptoms or have trouble breathing. Total Time Total Time Spent Total Time Spent (In Minutes): 45 minutes Coding Level of Care Code 04043 INP/OBS DISCH >30 MIN Diagnoses Ambulatory dysfunction R26.2 Influenza A J10.1 Acute bronchitis, unspecified organism J20.9 Bronchitis organism: unspecified organism Primary hypertension I10 Hypertension type: primary hypertension
[2025-04-05 15:13] VITALS: BP 135/69; PULSE 69; RESP 16; TEMP 97.9
== END 2025-04-05 17:26 | disposition home health service (06) | DRG 193 ==
LOC: SUATTDRO → 3E 13:49 → ED 13:49 → 3E 18:18